=== PATIENT | female | born 1990 | race Caucasian/White ===

== ENCOUNTER 2018-05-21 08:01 | Inpatient (IN) | payer OTHER ==
[~2018-05-21] VITALS: Ht 172.7 cm; Wt 98.9 kg
[2018-05-21] MEDS ORDERED: RINGERS SOLUTION,LACTATED 1,000 ML IV PRN (09:52)
[2018-05-21] MEDS ORDERED: CITRIC ACID/SODIUM CITRATE 30 ML SOLUTION UDCUP PO PRN (10:00)
[2018-05-21] MEDS ORDERED: METOCLOPRAMIDE HCL 5 MG/ML 2 ML VIAL IVP PRN (10:00)
[2018-05-21 10:32] LABS: BASOPHILS % (AUTO) 0.3 % (0.0-2.0); EOSINOPHILS % (AUTO) 1.1 % (1.0-6.0); HEMATOCRIT 34.3 % (36-46); HEMOGLOBIN 11.2 g/dL (12.0-16.0); LYMPHOCYTES # (AUTO) 1.9 K/uL (1.0-4.8); LYMPHOCYTES % (AUTO) 16.1 % (22.0-44.0); MEAN CORPUSCULAR HEMOGLOBIN 26.5 pg (26.0-34.0); MEAN CORPUSCULAR HGB CONC 32.6 G/dL (31.0-37.0); MEAN CORPUSCULAR VOLUME 81 fL (80-100); MONOCYTES # (AUTO) 0.9 K/uL (0.1-1.0); MONOCYTES % (AUTO) 7.5 % (2.0-9.0); NEUTROPHILS # (AUTO) 8.6 K/uL (1.8-7.7); PLATELET COUNT (AUTO)-OB 277 K/uL (150-450); RED BLOOD CELL COUNT(AUTO) 4.23 MIL/uL (4.00-5.20); RED CELL DISTRIBUTION WIDTH 15.6 % (11.5-14.5)
[2018-05-21] MEDS ORDERED: MISOPROSTOL 25 MCG TABLET PO ONE ×3 (11:00→18:00)
[2018-05-21] MEDS: RINGERS SOLUTION,LACTATED 1,000 ML IV SCH ×4 (11:06→21:22)
[2018-05-21] MEDS ORDERED: OXYTOCIN 30 UNITS/LACT RINGERS 500 ML IV PRN (18:30)
[2018-05-21] MEDS ORDERED: OXYGEN THERAPY IH SCH (20:00)
[2018-05-21] MEDS ORDERED: ROPIVACAINE HCL/PF 0.2% 100 ML ED ONE (20:54)
[2018-05-21] MEDS ORDERED: LIDOCAINE/PF 2% 5 ML VIAL ONE ×2 (20:54→23:06)
[2018-05-21] MEDS: FentaNYL CITRATE-PF 100 MCG/2 ML VIAL IVP PRN ×2 (21:12→21:20)
[2018-05-21] MEDS ORDERED: ROPIVACAINE HCL/PF 0.2% 100 ML ED PRN (23:30)
[2018-05-21] MEDS ORDERED: NALBUPHINE HCL 10 MG/ML VIAL IVP PRN (23:30)
[2018-05-21] MEDS ORDERED: DiphenhydrAMINE HCL 50 MG/ML VIAL IVP PRN (23:30)
[2018-05-21] MEDS ORDERED: ONDANSETRON HCL 4 MG/2 ML VIAL IVP PRN (23:30)
[2018-05-22] MEDS: RINGERS SOLUTION,LACTATED 1,000 ML IV SCH (02:15)
[2018-05-22] MEDS: FentaNYL CITRATE-PF 100 MCG/2 ML VIAL IVP PRN ×2 (03:26→03:31)
[2018-05-22] MEDS ORDERED: LIDOCAINE/PF 1% 30 ML VIAL ONE (06:30)
[2018-05-22] MEDS ORDERED: OXYTOCIN 20 UNITS/LACT RINGERS 1,000 ML IV ONE (06:57)
[2018-05-22] MEDS ORDERED: OXYTOCIN 20 UNITS/LACT RINGERS 1,000 ML IV SCH (07:16)
[2018-05-22] MEDS ORDERED: GLYCERIN/WITCH HAZEL LEAF 40 PADS JAR TP PRN (07:30)
[2018-05-22] MEDS ORDERED: MAGNESIUM HYDROXIDE SUSPENSION 30 ML UDCUP PO PRN (07:30)
[2018-05-22] MEDS ORDERED: SENNA/DOCUSATE SODIUM 8.6-50 MG TABLET PO PRN (07:30)
[2018-05-22] MEDS ORDERED: MEASLES/MUMPS/RUBELLA VACCINE, LIVE 0.5 ML/VIAL SQ ONE (07:30)
[2018-05-22] MEDS ORDERED: BENZOCAINE 20%/MENTHOL 56 GM SPRAY CANISTER TP PRN (07:30)
[2018-05-22] MEDS ORDERED: LANOLIN 7 GM OINTMENT TP PRN (07:30)
[2018-05-22] MEDS ORDERED: ACETAMINOPHEN/CODEINE 300-30 MG TABLET PO PRN (07:30)
[2018-05-22] MEDS: IBUPROFEN 600 MG TABLET PO PRN ×2 (08:43→15:42)
[2018-05-23 03:33] VITALS: BP 107/85
[2018-05-23 05:44] LABS: BASOPHILS % (AUTO) 0.3 % (0.0-2.0); HEMATOCRIT 30.1 % (36-46); HEMOGLOBIN 9.9 g/dL (12.0-16.0); LYMPHOCYTES # (AUTO) 2.4 K/uL (1.0-4.8); LYMPHOCYTES % (AUTO) 16.6 % (22.0-44.0); MEAN CORPUSCULAR HEMOGLOBIN 27.2 pg (26.0-34.0); MEAN CORPUSCULAR HGB CONC 32.9 G/dL (31.0-37.0); MEAN CORPUSCULAR VOLUME 83 fL (80-100); MONOCYTES # (AUTO) 1.1 K/uL (0.1-1.0); NEUTROPHILS # (AUTO) 10.5 K/uL (1.8-7.7); NEUTROPHILS % (AUTO) 74.1 % (40.0-70.0); PLATELET COUNT (AUTO)-OB 225 K/uL (150-450); RED BLOOD CELL COUNT(AUTO) 3.64 MIL/uL (4.00-5.20); RED CELL DISTRIBUTION WIDTH 15.4 % (11.5-14.5)
[2018-05-23] MEDS ORDERED: FERR-89 PO (09:42)
[2018-05-23] MEDS ORDERED: IBUP-2071 PO (09:42)
== END 2018-05-23 10:30 | disposition home or self-care (01) | DRG 807 ==
LOC: OBSVTOIN 08:01 → 4S 08:01
PROVIDERS: ADMIT Obstetrics & Gynecology; ATTEND Obstetrics & Gynecology
PROC: 0W8NXZZ Division of Female Perineum, External Approach (ICD-10-PCS; principal; 2018-05-22)
PROC: 10E0XZZ Delivery of Products of Conception, External Approach (ICD-10-PCS; 2018-05-22)
PROC: 0KQM0ZZ Repair Perineum Muscle, Open Approach (ICD-10-PCS; 2018-05-22)
PROC: 3E033VJ Introduction of Other Hormone into Peripheral Vein, Percutaneous Approach (ICD-10-PCS; 2018-05-22)
PROC: 3E0R3BZ Introduction of Anesthetic Agent into Spinal Canal, Percutaneous Approach (ICD-10-PCS; 2018-05-22)
PROC: 00HU33Z Insertion of Infusion Device into Spinal Canal, Percutaneous Approach (ICD-10-PCS; 2018-05-22)
PROC: 30233S1 Transfusion of Nonautologous Globulin into Peripheral Vein, Percutaneous Approach (ICD-10-PCS; 2018-05-23)
DX: O48.0 Post-term pregnancy (principal); Z37.0 Single live birth; Z3A.41 41 weeks gestation of pregnancy; O70.1 Second degree perineal laceration during delivery; O69.81X0 Labor and delivery complicated by cord around neck, without compression, not applicable or unspecified; Z88.0 Allergy status to penicillin; Z88.2 Allergy status to sulfonamides
CPT/HCPCS: 85461; 86850; 86870; 86900; 86901; J2405; J2590; J2795; J3010; J3490; J7120

== ENCOUNTER 2020-08-31 11:25 | Observation (INO) | payer OTHER ==
[~2020-08-31] VITALS: Ht 169 cm; Wt 99.8 kg
[~2020-08-31 11:25] MED LIST: FERR-89 PO; IBUP-2071 PO
[2020-08-31] MEDS ORDERED: RINGERS SOLUTION,LACTATED 1,000 ML IV ONE (11:30)
[2020-08-31 12:18] VITALS: BP 118/59
[2020-08-31] MEDS ORDERED: PREN-217 PO (12:20)
[2020-08-31 12:50] LABS: BASOPHILS % (AUTO) 0.4 % (0.0-2.0); EOSINOPHILS % (AUTO) 2.2 % (1.0-6.0); HEMATOCRIT 34.4 % (36-46); HEMOGLOBIN 11.5 g/dL (12.0-16.0); LYMPHOCYTES # (AUTO) 1.6 K/uL (1.0-4.8); LYMPHOCYTES % (AUTO) 15.8 % (22.0-44.0); MEAN CORPUSCULAR HEMOGLOBIN 30.4 pg (26.0-34.0); MEAN CORPUSCULAR HGB CONC 33.6 G/dL (31.0-37.0); MEAN CORPUSCULAR VOLUME 91 fL (80-100); MONOCYTES # (AUTO) 0.6 K/uL (0.1-1.0); MONOCYTES % (AUTO) 5.5 % (2.0-9.0); NEUTROPHILS # (AUTO) 7.8 K/uL (1.8-7.7); NEUTROPHILS % (AUTO) 76.1 % (40.0-70.0); PLATELET COUNT (AUTO)-OB 229 K/uL (150-450); RED BLOOD CELL COUNT(AUTO) 3.79 MIL/uL (4.00-5.20)
[2020-08-31 12:59] LABS: ANION GAP 12 mmol/L (8-16); CALCIUM, TOTAL 8.6 mg/dL (8.8-10.5); CARBON DIOXIDE 22 mmol/L (22-29); CHLORIDE 104 mmol/L (98-107); CREATININE 0.57 mg/dL (0.60-1.30); GLOMERULAR FILTR. RATE CALC > 60 mL/min (>60); GLUCOSE,RANDOM 132 mg/dL (70-110); POTASSIUM 3.6 mmol/L (3.5-5.1); SODIUM SERUM 138 mmol/L (136-145); UREA NITROGEN, BLOOD 10 mg/dL (7-18)
[2020-08-31 13:05] LABS: ALANINE AMINOTRANSFERASE 15 U/L (12-78); ALBUMIN 2.6 g/dL (3.4-5.0); ALKALINE PHOSPHATASE 135 U/L (46-116); ASPARTATE AMINOTRANSFERASE 8 U/L (15-37); BILIRUBIN,TOTAL 0.2 mg/dL (0.1-1.0); TOTAL PROTEIN, SERUM 6.4 g/dL (6.4-8.2)
[2020-08-31] MEDS ORDERED: RINGERS SOLUTION,LACTATED 1,000 ML IV SCH (13:30)
[2020-08-31 16:31] LABS: COVID AG,FIA SOURCE NASOPHARYNGEAL
== END 2020-08-31 16:00 | disposition home or self-care (01) ==
LOC: 4S 11:25
PROVIDERS: ADMIT Obstetrics & Gynecology; ATTEND Obstetrics & Gynecology
DX: O41.03X0 Oligohydramnios, third trimester, not applicable or unspecified (principal); Z20.822 Contact with and (suspected) exposure to COVID-19; O99.613 Diseases of the digestive system complicating pregnancy, third trimester; R19.7 Diarrhea, unspecified; Z3A.37 37 weeks gestation of pregnancy
CPT/HCPCS: 36415; 59025; 76805; 80053; 81001; 85025; 87426; 96360; 96361; 99219; J7120

== ENCOUNTER 2020-09-08 23:33 | Inpatient (IN) | payer OTHER ==
[~2020-09-08] VITALS: Ht 167.6 cm; Wt 103.0 kg
[~2020-09-08 23:33] MED LIST changes: +PREN-217 PO
[2020-09-09] MEDS ORDERED: OXYTOCIN 30 UNITS/LACT RINGERS 500 ML IV ONE (01:15)
[2020-09-09] MEDS ORDERED: METOCLOPRAMIDE HCL 5 MG/ML 2 ML VIAL IVP PRN (01:15)
[2020-09-09] MEDS ORDERED: RINGERS SOLUTION,LACTATED 1,000 ML IV PRN (01:15)
[2020-09-09] MEDS ORDERED: OXYGEN THERAPY IH SCH ×4 (01:15→20:00)
[2020-09-09] MEDS ORDERED: CITRIC ACID/SODIUM CITRATE 30 ML SOLUTION UDCUP PO PRN (01:15)
[2020-09-09] MEDS ORDERED: DINOPROSTONE 10 MG VAGINAL SUPPOSITORY VG ONE (01:15)
[2020-09-09 01:29] LABS: COVID AG,FIA SOURCE NASOPHARYNGEAL
[2020-09-09] MEDS: RINGERS SOLUTION,LACTATED 1,000 ML IV SCH ×3 (01:29→13:14)
[2020-09-09 01:33] LABS: BASOPHILS % (AUTO) 0.4 % (0.0-2.0); EOSINOPHILS % (AUTO) 2.3 % (1.0-6.0); HEMATOCRIT 35.2 % (36-46); HEMOGLOBIN 11.5 g/dL (12.0-16.0); LYMPHOCYTES # (AUTO) 2.3 K/uL (1.0-4.8); LYMPHOCYTES % (AUTO) 18.7 % (22.0-44.0); MEAN CORPUSCULAR HEMOGLOBIN 29.6 pg (26.0-34.0); MEAN CORPUSCULAR HGB CONC 32.7 G/dL (31.0-37.0); MEAN CORPUSCULAR VOLUME 90 fL (80-100); MONOCYTES % (AUTO) 8.2 % (2.0-9.0); NEUTROPHILS # (AUTO) 8.6 K/uL (1.8-7.7); NEUTROPHILS % (AUTO) 70.4 % (40.0-70.0); PLATELET COUNT (AUTO)-OB 227 K/uL (150-450); RED BLOOD CELL COUNT(AUTO) 3.89 MIL/uL (4.00-5.20); RED CELL DISTRIBUTION WIDTH 14.2 % (11.5-14.5)
[2020-09-09 06:23] VITALS: BP 105/57
[2020-09-09] MEDS ORDERED: FOLI20CA PO (06:32)
[2020-09-09] MEDS ORDERED: OXYTOCIN 30 UNITS/LACT RINGERS 500 ML IV PRN (08:00)
[2020-09-09] MEDS ORDERED: MISOPROSTOL 50 MCG TABLET PO ONE (08:05)
[2020-09-09] MEDS ORDERED: CHLORHEXIDINE GLUCONATE 4% 118 ML TOPICAL LIQUID TP PRN (09:30)
[2020-09-09] MEDS ORDERED: ROPIVACAINE HCL/PF 0.2% 100 ML ED ONE (11:02)
[2020-09-09] MEDS ORDERED: DiphenhydrAMINE HCL 50 MG/ML VIAL IVP PRN ×3 (11:30→19:00)
[2020-09-09] MEDS ORDERED: ONDANSETRON HCL 4 MG/2 ML VIAL IVP PRN ×3 (11:30→19:00)
[2020-09-09] MEDS ORDERED: ROPIVACAINE HCL/PF 0.2% 100 ML ED PRN (11:30)
[2020-09-09] MEDS ORDERED: NALBUPHINE HCL 10 MG/ML VIAL IVP PRN ×4 (11:30→19:00)
[2020-09-09] MEDS ORDERED: -PHARMACY NOTE- MISC ONE (13:15)
[2020-09-09] MEDS ORDERED: GENTAMICIN 120 MG/NACL ISO-OSM 100 ML IV ONE (14:00)
[2020-09-09] MEDS ORDERED: MORPHINE SULFATE/PF 0.5 MG/ML 10 ML AMP ONE (17:41)
[2020-09-09] MEDS ORDERED: ACETAMINOPHEN 1000 MG/ISO-OSM 100 ML IV ONE (17:41)
[2020-09-09] MEDS ORDERED: BUPIVACAINE HCL/DEX-WATER/PF 0.75% 2 ML AMP ITH ONE (17:41)
[2020-09-09] MEDS ORDERED: FentaNYL CITRATE PF 100 MCG/2 ML VIAL ONE (17:41)
[2020-09-09] MEDS ORDERED: DEXAMETHASONE SOD PHOS 4 MG/ML VIAL IVP PRN (18:30)
[2020-09-09] MEDS ORDERED: FentaNYL CITRATE PF 100 MCG/2 ML VIAL IVP PRN (19:00)
[2020-09-09] MEDS ORDERED: LANOLIN 7 GM OINTMENT TP PRN (19:00)
[2020-09-09] MEDS ORDERED: NALOXONE HCL 0.4 MG/ML VIAL IVP PRN (19:00)
[2020-09-09] MEDS ORDERED: MORPHINE SULFATE 10 MG/ML SYRINGE IVP PRN (19:00)
[2020-09-09] MEDS ORDERED: METHYLERGONOVINE MALEATE 0.2 MG/ML VIAL ONE (19:43)
[2020-09-09] MEDS ORDERED: DiphenhydrAMINE HCL 50 MG/ML VIAL ONE (20:35)
[2020-09-09] MEDS: DEXTROSE 5%-0.45% SODIUM CHL 1,000 ML IV SCH (22:55)
[2020-09-10] MEDS: ACETAMINOPHEN 1000 MG/ISO-OSM 100 ML IV SCH ×2 (02:39→09:36)
[2020-09-10] MEDS: DEXTROSE 5%-0.45% SODIUM CHL 1,000 ML IV SCH ×3 (02:39→12:40)
[2020-09-10] MEDS ORDERED: OXYTOCIN 10 UNITS/ML VIAL IM ONE (05:20)
[2020-09-10] MEDS ORDERED: EPHEDrine SULFATE 50 MG/ML VIAL IM ONE (05:20)
[2020-09-10] MEDS ORDERED: ONDANSETRON HCL 4 MG/2 ML VIAL IVP ONE (05:20)
[2020-09-10] MEDS ORDERED: 0.9% SODIUM CHLORIDE 10 ML VIAL IVP ONE (05:20)
[2020-09-10] MEDS: MAGNESIUM HYDROXIDE SUSPENSION 30 ML UDCUP PO SCH ×2 (09:36→20:27)
[2020-09-10] MEDS: IBUPROFEN 800 MG TABLET PO SCH ×2 (12:40→18:11)
[2020-09-10 16:05] VITALS: BP 92/67
[2020-09-11] MEDS: IBUPROFEN 800 MG TABLET PO SCH ×4 (00:03→17:53)
[2020-09-11] MEDS: ACETAMINOPHEN/CODEINE 300-30 MG TABLET PO PRN ×3 (01:24→23:09)
[2020-09-11] MEDS: MAGNESIUM HYDROXIDE SUSPENSION 30 ML UDCUP PO SCH ×2 (08:45→09:00)
[2020-09-12] MEDS: IBUPROFEN 800 MG TABLET PO SCH ×2 (00:45→06:47)
[2020-09-12] MEDS ORDERED: IBUP-2071 PO (10:33)
[2020-09-12] MEDS: ACETAMINOPHEN/CODEINE 300-30 MG TABLET PO PRN (11:51)
== END 2020-09-12 12:20 | disposition home or self-care (01) | DRG 788 ==
LOC: 4S 23:33 → PREOBSVTOIN 09-14 23:42
PROVIDERS: ADMIT Student in an Organized Health Care Education/Training Program; ATTEND Student in an Organized Health Care Education/Training Program
PROC: 10D00Z1 Extraction of Products of Conception, Low, Open Approach (ICD-10-PCS; principal; 2020-09-09)
PROC: 30233S1 Transfusion of Nonautologous Globulin into Peripheral Vein, Percutaneous Approach (ICD-10-PCS; 2020-09-10)
DX: O62.2 Other uterine inertia (principal); Z3A.39 39 weeks gestation of pregnancy; Z37.0 Single live birth; Z20.822 Contact with and (suspected) exposure to COVID-19
CPT/HCPCS: 85025; 85461; 86850; 86870; 86900; 86901; 86922; 87426; J0131; J0690; J1200; J1580; J2210; J2274; J2405; J2590; J2765; J2795; J3010; J3490; J7120